=== PATIENT | female | born 1940 | race African-American/Black ===

== ENCOUNTER 2018-01-12 15:37 | Emergency (ER) | payer MEDICARE, MEDICAID ==
[~2018-01-12] VITALS: Ht 170.2 cm; Wt 85.4 kg
[2018-01-12] MEDS ORDERED: CEPHALEXIN 500MG CAPSULE PO ONE (16:45)
[2018-01-12 17:44] VITALS: BP 147/76
== END 2018-01-13 03:18 | disposition home or self-care (01) ==
LOC: ER 15:37
DX: L02.416 Cutaneous abscess of left lower limb (principal); L03.116 Cellulitis of left lower limb; I73.89 Other specified peripheral vascular diseases; I11.0 Hypertensive heart disease with heart failure; I50.9 Heart failure, unspecified; J44.9 Chronic obstructive pulmonary disease, unspecified; F17.200 Nicotine dependence, unspecified, uncomplicated
CPT/HCPCS: 99283